=== PATIENT | female | born 1925 | race Caucasian/White ===

== ENCOUNTER 2016-12-18 15:35 | Emergency (ER) | payer OTHER ==
[~2016-12-18] VITALS: Ht 157.5 cm; Wt 59.0 kg
[~2016-12-18 15:35] MED LIST: AMOXICILLIN500 M1 PO; ASPIR 8181 M1 PO; ASPIRIN E.C.81 M1 PO; ASPIRIN325 MG PO; Augmentin PO; CALTRATE 600 +1 EAC1 PO; CALTRATE 6001 TABLET PO; CARDIZEM CD120 MG PO; CARDIZEM120 MG PO; COUMADIN,JANTOVE2 MG PO; COUMADIN,JANTOVE4 MG PO; COUMADIN2 MG PO; Cardizem CD,Cartia X PO; Colace PO; DIGOXIN125 MCG PO; Digoxin PO; FUROSEMIDE20 MG PO; JANTOVEN2 MG; K-Dur PO; KEFLEX500 MG PO; LANOXIN,DIGI0.125 MG PO; LASIX20 MG PO; LOPRESSOR25 MG PO; Lanoxin,Digitek PO; Lasix PO; METOPROLOL PO; METOPROLOL SUC100 MG PO; METOPROLOL SUCC25 MG PO; MICRO-K10 ME1 PO; NORVASC10 MG PO; OCUVITE1 TABLET PO; OMEPRAZOLE40 M1 PO; OS-CAL 500+D T1 EAC1 PO; OSTEO BI-FLEX1 EAC1 PO; OSTEO BI-FLEX1 EAC2 PO; POTASSIUM CHLO10 ME3 PO; POTASSIUM CHLO10 ME4 PO; PRILOSEC40 MG PO; Robitussin, Organidi PO; ST. JOSEPH ASPI81 MG PO; TOPROL XL100 MG PO; TYLENOL EXTRA500 MG PO; TYLENOL WITH C1 EACH PO; Toprol XL PO; ULTRAM50 MG PO; VERAPAMIL HCL120 MG; VITAMIN D1000 UNIT PO; ZOFRAN ODT4 MG PO
[2016-12-18 16:04] LABS: HEMATOCRIT 38.7 % (36.0-46.0); MCH 32.7 PG (29.0-34.0); MCHC 33.1 G/DL (30.0-36.0); MCV 98.7 FL (83-99); PLATELET COUNT 156 K/uL (156-360); RBC DIS.WIDTH-CV 12.9 % (11.8-14.6); RBC DIS.WIDTH-SD 46.3 % (39-53); RED BLOOD COUNT 3.92 M/uL (3.80-5.20)
[2016-12-18 16:11] LABS: CHLORIDE 102 mEq/L (99-109); SODIUM 136 mEq/L (136-147)
[2016-12-18 16:13] LABS: GLUCOSE 136 mg/dL (70-99)
[2016-12-18 16:14] LABS: ANION GAP 11 MEQ/L (2-14)
[2016-12-18 16:17] LABS: GFR ESTIMATE (CALCULATED) > 59 mL/min/
[2016-12-18 16:18] LABS: UREA NITROGEN (BUN) 14 mg/dL (9-23)
[2016-12-18 18:30] VITALS: BP 150/82
== END 2016-12-18 18:30 | disposition home or self-care (01) ==
LOC: EME 15:35
DX: R42 Dizziness and giddiness (principal); R26.2 Difficulty in walking, not elsewhere classified; R51 Headache; Z91.81 History of falling; I10 Essential (primary) hypertension; K21.9 Gastro-esophageal reflux disease without esophagitis; Z79.82 Long term (current) use of aspirin; I48.91 Unspecified atrial fibrillation; Z96.652 Presence of left artificial knee joint; Z87.440 Personal history of urinary (tract) infections
CPT/HCPCS: 70450; 71020; 80048; 85027; 93005; 99281; 99284

== ENCOUNTER 2017-02-19 10:50 | Emergency (ER) | payer OTHER ==
[~2017-02-19] VITALS: Ht 160 cm; Wt 57.3 kg
[2017-02-19] MEDS ORDERED: FLEXERIL10 MG PO (13:25)
[2017-02-19] MEDS ORDERED: PREDNISONE10 MG PO (13:25)
[2017-02-19 15:56] VITALS: BP 172/107
== END 2017-02-19 15:57 | disposition home or self-care (01) ==
LOC: EME 10:50
DX: M54.31 Sciatica, right side (principal); M54.32 Sciatica, left side; G89.29 Other chronic pain; I95.1 Orthostatic hypotension; I10 Essential (primary) hypertension; I48.91 Unspecified atrial fibrillation; Z79.82 Long term (current) use of aspirin; R26.2 Difficulty in walking, not elsewhere classified
CPT/HCPCS: 70450; 93005; 99281; 99283

== ENCOUNTER 2017-03-15 09:33 | Emergency (ER) | payer OTHER ==
[~2017-03-15] VITALS: Ht 157.5 cm; Wt 56.9 kg
[~2017-03-15 09:33] MED LIST changes: +FLEXERIL10 MG PO; +PREDNISONE10 MG PO
[2017-03-15 11:09] VITALS: BP 164/113
== END 2017-03-15 11:17 | disposition home or self-care (01) ==
LOC: EME 09:33
DX: F41.9 Anxiety disorder, unspecified (principal); I10 Essential (primary) hypertension; F03.90 Unspecified dementia, unspecified severity, without behavioral disturbance, psychotic disturbance, mood disturbance, and anxiety; M79.604 Pain in right leg; M79.605 Pain in left leg; G89.29 Other chronic pain; M54.5 Low back pain; R10.84 Generalized abdominal pain; Z79.82 Long term (current) use of aspirin

== ENCOUNTER 2017-03-28 11:39 | Emergency (ER) | payer OTHER ==
[~2017-03-28] VITALS: Ht 152.4 cm; Wt 56.8 kg
[2017-03-28 13:13] LABS: HEMATOCRIT 41.1 % (36.0-46.0); MCH 32.5 PG (29.0-34.0); MCHC 33.1 G/DL (30.0-36.0); MCV 98.1 FL (83-99); MEAN PLAT.VOLUME 9.4 uM^3 (9.5-12.4); PLATELET COUNT 195 K/uL (156-360); RBC DIS.WIDTH-CV 12.4 % (11.8-14.6); RBC DIS.WIDTH-SD 44.6 % (39-53); RED BLOOD COUNT 4.19 M/uL (3.80-5.20); WHITE BLOOD COUNT 4.8 K/uL (4.1-10.2)
[2017-03-28 13:24] LABS: CHLORIDE 104 mEq/L (99-109); POTASSIUM 4.4 mEq/L (3.7-5.4); SODIUM 139 mEq/L (136-147)
[2017-03-28 13:26] LABS: GLUCOSE 93 mg/dL (70-99)
[2017-03-28 13:27] LABS: ANION GAP 10 MEQ/L (2-14)
[2017-03-28 13:30] LABS: GFR ESTIMATE (CALCULATED) > 59 mL/min/
[2017-03-28 13:31] LABS: UREA NITROGEN (BUN) 10 mg/dL (9-23)
[2017-03-28 14:51] LABS: TOTAL BILIRUBIN 0.5 mg/dL (0.0-1.0)
[2017-03-28 14:52] LABS: ALKALINE PHOSPHATASE 93 IU/L (3-129)
[2017-03-28 14:54] LABS: DIRECT BILIRUBIN 0.2 mg/dL (0.0-0.3)
[2017-03-28 14:59] LABS: TROP-I INTERPRETATION NEGATIVE; TROPONIN-I 0.01 ng/mL (0.0-0.30)
[2017-03-28 17:23] LABS: ADD MIUA? YES; BILIRUBIN NEGATIVE; BLOOD NEGATIVE; COLOR STRAW ((YELLOW)); GLUCOSE (STRIP) NEGATIVE; KETONES NEGATIVE; LEUKOCYTES NEGATIVE; NITRITE POSITIVE; PROTEIN (STRIP) NEGATIVE; SPECIFIC GRAVITY 1.008 (1.000-1.030); UROBILINOGEN 0.2 MG/DL (0.2-1.0)
[2017-03-28 17:35] LABS: RED BLOOD CELLS 0-5 /HPF (0-5); WHITE BLOOD CELLS 0-5 /HPF (0-5)
[2017-03-28 17:36] LABS: BACTERIA NONE SEEN /HPF; EPITHELIAL CELLS NONE SEEN /HPF; MUCUS NONE SEEN /LPF; UCUL ADDED? NO
[2017-03-28] MEDS ORDERED: KEFLEX500 MG PO (17:53)
[2017-03-28 19:03] VITALS: BP 164/115
== END 2017-03-28 18:53 | disposition home or self-care (01) ==
LOC: EME 11:39
PROVIDERS: Emergency Medicine
DX: N39.0 Urinary tract infection, site not specified (principal); R42 Dizziness and giddiness; I10 Essential (primary) hypertension; F03.90 Unspecified dementia, unspecified severity, without behavioral disturbance, psychotic disturbance, mood disturbance, and anxiety; K21.9 Gastro-esophageal reflux disease without esophagitis; G89.29 Other chronic pain; M54.9 Dorsalgia, unspecified; Z96.652 Presence of left artificial knee joint
CPT/HCPCS: 70450; 71020; 80048; 80076; 81003; 83880; 84484; 85027; 87086 GA; 93005; 99281; 99285

== ENCOUNTER 2017-07-16 10:58 | Inpatient (IN) | payer OTHER ==
[~2017-07-16] VITALS: Ht 154.9 cm; Wt 54.7 kg
[2017-07-16 11:44] LABS: HEMATOCRIT 38.7 % (36.0-46.0); HEMOGLOBIN 12.8 G/DL (11.9-15.5); MCH 33.3 PG (29.0-34.0); MCHC 33.1 G/DL (30.0-36.0); MCV 100.8 FL (83-99); PLATELET COUNT 161 K/uL (156-360); RBC DIS.WIDTH-CV 12.5 % (11.8-14.6); RBC DIS.WIDTH-SD 46.4 % (39-53); RED BLOOD COUNT 3.84 M/uL (3.80-5.20); WHITE BLOOD COUNT 5.3 K/uL (4.1-10.2)
[2017-07-16 11:55] LABS: CHLORIDE 107 mEq/L (99-109); POTASSIUM 3.8 mEq/L (3.7-5.4); SODIUM 137 mEq/L (136-147)
[2017-07-16 11:56] LABS: GLUCOSE 148 mg/dL (70-99)
[2017-07-16 12:00] LABS: CREATININE 0.8 mg/dL (0.6-1.3); GFR ESTIMATE (CALCULATED) > 59 mL/min/
[2017-07-16 12:01] LABS: UREA NITROGEN (BUN) 14 mg/dL (9-23)
[2017-07-16 12:06] LABS: TROP-I INTERPRETATION NEGATIVE; TROPONIN-I < 0.01 ng/mL (0.0-0.30)
[2017-07-16] MEDS ORDERED: ULTRAM50 MG PO (14:50)
[2017-07-16] MEDS ORDERED: NAMENDA10 MG PO (14:50)
[2017-07-16] MEDS ORDERED: ARICEPT5 MG PO (14:50)
[2017-07-16 19:15] VITALS: BP 152/94
[2017-07-16 21:19] LABS: TROP-I INTERPRETATION NEGATIVE; TROPONIN-I 0.02 ng/mL (0.0-0.30)
[2017-07-16 22:30] VITALS: BP 157/95
[2017-07-17] VITALS (7 sets, daily range): BP systolic 144–188; BP diastolic 62–119
[2017-07-17 06:11] LABS: TROP-I INTERPRETATION NEGATIVE; TROPONIN-I 0.01 ng/mL (0.0-0.30)
[2017-07-17 06:21] LABS: CHLORIDE 105 MEQ/L (99-109); CREATININE 0.6 MG/DL (0.6-1.3); GFR ESTIMATE (CALCULATED) > 59 mL/min/; POTASSIUM 3.7 MEQ/L (3.7-5.4); SODIUM 140 MEQ/L (136-147); UREA NITROGEN (BUN) 11 mg/dL (9-23)
[2017-07-17 06:22] LABS: GLUCOSE 92 mg/dL (70-99)
[2017-07-17 08:10] LABS: THYROTROPIN (TSH) 1.2 MIU/L (0.4-5.5)
[2017-07-17 11:42] LABS: APPEARANCE SL.HAZY ((CLEAR)); BILIRUBIN NEGATIVE; BLOOD SMALL; COLOR YELLOW ((YELLOW)); GLUCOSE (STRIP) NEGATIVE; KETONES 5; LEUKOCYTES TRACE; NITRITE POSITIVE; PROTEIN (STRIP) NEGATIVE; SPECIFIC GRAVITY 1.006 (1.000-1.030); UROBILINOGEN 0.2 MG/DL (0.2-1.0)
[2017-07-17 11:49] LABS: BACTERIA RARE /HPF; EPITHELIAL CELLS NONE SEEN /HPF; MUCUS TRACE /LPF; RED BLOOD CELLS 0-5 /HPF (0-5); UCUL ADDED? NO; WHITE BLOOD CELLS 0-5 /HPF (0-5)
[2017-07-18] VITALS (7 sets, daily range): BP systolic 126–189; BP diastolic 55–104
[2017-07-18 05:50] LABS: BASOPHIL (%) 0.5 % (0-1); EOSINOPHIL (%) 0.7 % (0-5); HEMATOCRIT 36.8 % (36.0-46.0); HEMOGLOBIN 12.4 G/DL (11.9-15.5); LYMPHOCYTE (%) 34.9 % (15-42); LYMPHOCYTE COUNT 2.1 K/uL (1.0-2.8); MCH 33.1 PG (29.0-34.0); MCHC 33.7 G/DL (30.0-36.0); MCV 98.1 FL (83-99); MONOCYTE (%) 10.7 % (3-12); MONOCYTE COUNT 0.7 K/uL (0-0.8); NEUTROPHIL (%) 53.2 % (45-76); NEUTROPHIL COUNT 3.3 K/uL (1.8-6.4); PLATELET COUNT 173 K/uL (156-360); RBC DIS.WIDTH-CV 12.5 % (11.8-14.6); RBC DIS.WIDTH-SD 45.2 % (39-53); RED BLOOD COUNT 3.75 M/uL (3.80-5.20); WHITE BLOOD COUNT 6.1 K/uL (4.1-10.2)
[2017-07-18 06:18] LABS: ALBUMIN 3.6 G/DL (3.2-4.8); ALKALINE PHOSPHATASE 76 IU/L (3-129); ALT (GPT) 21 IU/L (3-49); AST (GOT) 35 IU/L (2-34); CHLORIDE 100 MEQ/L (99-109); CREATININE 0.6 MG/DL (0.6-1.3); GFR ESTIMATE (CALCULATED) > 59 mL/min/; GLUCOSE 102 mg/dL (70-99); POTASSIUM 3.1 MEQ/L (3.7-5.4); SODIUM 139 MEQ/L (136-147); TOTAL PROTEIN 6.5 G/DL (6.4-8.3); UREA NITROGEN (BUN) 11 mg/dL (9-23)
[2017-07-18 08:32] LABS: FOLIC ACID (FOLATE) > 22.0 NG/ML (5.0-22.0)
[2017-07-19 03:29] VITALS: BP 145/56
[2017-07-19 06:06] LABS: BASOPHIL (%) 0.5 % (0-1); EOSINOPHIL (%) 2.3 % (0-5); EOSINOPHIL COUNT 0.1 K/uL (0-0.3); HEMATOCRIT 38.1 % (36.0-46.0); HEMOGLOBIN 12.9 G/DL (11.9-15.5); IMMATURE GRANULOCYTE (%) 0.4 % (0.0-0.7); LYMPHOCYTE (%) 38.4 % (15-42); LYMPHOCYTE COUNT 2.1 K/uL (1.0-2.8); MCH 33.6 PG (29.0-34.0); MCHC 33.9 G/DL (30.0-36.0); MCV 99.2 FL (83-99); MONOCYTE (%) 11.4 % (3-12); MONOCYTE COUNT 0.6 K/uL (0-0.8); NEUTROPHIL COUNT 2.6 K/uL (1.8-6.4); PLATELET COUNT 163 K/uL (156-360); RBC DIS.WIDTH-CV 12.5 % (11.8-14.6); RBC DIS.WIDTH-SD 45.1 % (39-53); RED BLOOD COUNT 3.84 M/uL (3.80-5.20); WHITE BLOOD COUNT 5.6 K/uL (4.1-10.2)
[2017-07-19 06:31] LABS: ALBUMIN 3.5 G/DL (3.2-4.8); ALKALINE PHOSPHATASE 77 IU/L (3-129); ALT (GPT) 18 IU/L (3-49); AST (GOT) 31 IU/L (2-34); CHLORIDE 100 MEQ/L (99-109); CREATININE 0.6 MG/DL (0.6-1.3); GFR ESTIMATE (CALCULATED) > 59 mL/min/; GLUCOSE 95 mg/dL (70-99); POTASSIUM 3.8 MEQ/L (3.7-5.4); SODIUM 138 MEQ/L (136-147); UREA NITROGEN (BUN) 12 mg/dL (9-23)
[2017-07-19 07:06] VITALS: BP 180/97
[2017-07-19 12:20] VITALS: BP 158/88
[2017-07-19 14:54] VITALS: BP 166/85
[2017-07-19 19:40] VITALS: BP 187/90
[2017-07-19 23:16] VITALS: BP 157/87
[2017-07-20 02:43] VITALS: BP 153/90
[2017-07-20 07:44] VITALS: BP 184/99
[2017-07-20 12:04] VITALS: BP 182/86
[2017-07-20 15:46] VITALS: BP 189/86
[2017-07-20 19:09] VITALS: BP 168/90
[2017-07-20 23:19] VITALS: BP 118/82
[2017-07-21 02:12] VITALS: BP 198/88
[2017-07-21 03:10] VITALS: BP 168/98
[2017-07-21 06:21] VITALS: BP 158/90
[2017-07-21 07:21] VITALS: BP 165/82
[2017-07-21 12:39] VITALS: BP 161/84
[2017-07-21 15:03] VITALS: BP 133/73
[2017-07-21] MEDS ORDERED: AMOXICILLIN500 MG PO (15:21)
[2017-07-21] MEDS ORDERED: CARDIZEM CD,CA180 MG PO (15:22)
[2017-07-21] MEDS ORDERED: FLORASTOR250 MG PO (15:24)
== END 2017-07-21 16:19 | disposition home or self-care (01) | DRG 309 ==
LOC: EME 10:58 → 4EAST 13:01 → EDOF 13:01 → ENRESERV 13:04 → 4EAST 19:07
PROVIDERS: Hospitalist; Internal Medicine
DX: I48.2 Chronic atrial fibrillation (principal); N39.0 Urinary tract infection, site not specified; F03.91 Unspecified dementia, unspecified severity, with behavioral disturbance; F05 Delirium due to known physiological condition; J90 Pleural effusion, not elsewhere classified; Z66 Do not resuscitate; K21.9 Gastro-esophageal reflux disease without esophagitis; B95.2 Enterococcus as the cause of diseases classified elsewhere; I25.10 Atherosclerotic heart disease of native coronary artery without angina pectoris; I10 Essential (primary) hypertension; G89.29 Other chronic pain; M19.90 Unspecified osteoarthritis, unspecified site; M54.9 Dorsalgia, unspecified; M79.1 Myalgia; R00.0 Tachycardia, unspecified; R45.1 Restlessness and agitation; D69.6 Thrombocytopenia, unspecified; J43.9 Emphysema, unspecified; Z91.81 History of falling; Z96.652 Presence of left artificial knee joint; Z87.440 Personal history of urinary (tract) infections; Z79.82 Long term (current) use of aspirin; Z88.5 Allergy status to narcotic agent; Z81.1 Family history of alcohol abuse and dependence
CPT/HCPCS: 70450; 71045; 71046; 80048; 80053; 81003; 82607; 82746; 83880; 84443; 84484; 85025; 85027; 93005; 93306; 99281; 99285; J0360; J0696; J1644; J2060; J7040; J7050